=== PATIENT | male | born 1990 | race Caucasian/White ===

== ENCOUNTER 2019-03-09 16:03 | Emergency (ER) | payer BC ==
[2019-03-09 16:15] VITALS: BP 135/89; PULSE 97; TEMP 98.5
[2019-03-09 17:27] VITALS: RESP 16
--- NOTE | 2019-03-09 17:42 | XR ---
EXAMINATION TYPE: XR chest 2V DATE OF EXAM: 03/09/2019 COMPARISON: NONE HISTORY: Cough and congestion TECHNIQUE: 2 views FINDINGS: Heart and mediastinum are normal. Lungs are clear. Diaphragm is normal. Bony thorax appears normal. IMPRESSION: Normal chest.
--- NOTE | 2019-03-09 18:02 | ED ---
General Adult HPI - General Chief complaint: Shortness of Breath Stated complaint: Cough/congestion Time Seen by Provider: 03/09/19 17:17 Source: patient Mode of arrival: ambulatory Limitations: no limitations - History of Present Illness Initial comments: Patient is a 28-year-old male presenting to emergency Department with a cough 2-3 weeks. Patient states he was treated for bronchitis/pneumonia with azithromycin 2 weeks ago. Patient still complaining of a deep cough. Patient denies fever, chills, nausea. Patient did have a vomiting episode today after he was coughing. He has no other complaints at this time. He denies history of asthma or COPD. upon arrival to the ER, his vital signs are stable. - Related Data Previous Rx's Medication Instructions Recorded Albuterol Inhaler [Ventolin Hfa 1 - 2 puff INHALATION RT-Q6H PRN 03/09/19 Inhaler] #1 inhaler methylPREDNISolone [Medrol Dose 4 mg PO DIRECTED #1 pack 03/09/19 Pack] Allergies Allergy/AdvReac Type Severity Reaction Status Date / Time amoxicillin Allergy Rash/Hives Verified 03/09/19 16:15 Penicillins Allergy Rash/Hives Verified 03/09/19 16:15 Review of Systems ROS Statement: Those systems with pertinent positive or pertinent negative responses have been documented in the HPI. ROS Other: All systems not noted in ROS Statement are negative. Past Medical History Past Medical History: No Reported History History of Any Multi-Drug Resistant Organisms: None Reported Past Surgical History: No Surgical Hx Reported Past Psychological History: No Psychological Hx Reported Smoking Status: Never smoker Past Alcohol Use History: Occasional Past Drug Use History: None Reported General Exam - General Exam Comments Initial Comments: GENERAL: Well-appearing, well-nourished and in no acute distress. HEAD: Atraumatic, normocephalic. EYES: Pupils equal round and reactive to light, extraocular movements intact, sclera anicteric, conjunctiva are normal. ENT: TMs normal, nares patent, oropharynx clear without exudates. Moist mucous membranes. NECK: Normal range of motion, supple without lymphadenopathy or JVD. LUNGS: Breath sounds clear to auscultation bilaterally and equal. No wheezes rales or rhonchi. HEART: Regular rate and rhythm without murmurs, rubs or gallops. ABDOMEN: Soft, nontender, normoactive bowel sounds. No guarding, no rebound. No masses appreciated. EXTREMITIES: Normal range of motion, no pitting or edema. No clubbing or cyanosis. NEUROLOGICAL: Normal speech, normal gait. PSYCH: Normal mood, normal affect. SKIN: Warm, Dry, normal turgor, no rashes or lesions noted. Limitations: no limitations Course Vital Signs 03/09/19 03/09/19 16:11 17:25 Temperature 98.5 F Pulse Rate 97 Respiratory 18 16 Rate Blood Pressure 135/89 O2 Sat by Pulse 95 Oximetry Medical Decision Making - Medical Decision Making Patient is a 28-year-old male presenting with a cough 3 weeks. He was treated with azithromycin 2 weeks ago. Chest x-ray today shows no acute findings. I discussed this with the patient. Patient will be given round of steroids and inhaler to use for cough. He is in agreement with this plan of care. He is stable for discharge at this time. Patient will follow up with PCP if symptoms persist. Disposition Clinical Impression: Bronchitis Disposition: HOME SELF-CARE Condition: Stable Instructions (If sedation given, give patient instructions): Acute Bronchitis (ED) Additional Instructions: Please return to the Emergency Department if symptoms worsen or any other concerns. Take steroids as prescribed. Use inhaler as needed for cough. Follow-up with PCP if symptoms persist after 2 weeks. Prescriptions: methylPREDNISolone [Medrol Dose Pack] 4 mg PO DIRECTED #1 pack Albuterol Inhaler [Ventolin Hfa Inhaler] 1 - 2 puff INHALATION RT-Q6H PRN #1 inhaler PRN Reason: Cough Is patient prescribed a controlled substance at d/c from ED?: No Referrals: Milton Huddleston MD [Primary Care Provider] - 1-2 days
== END 2019-03-09 18:10 | disposition home or self-care (01) ==
LOC: EC 16:03
DX: J40 Bronchitis, not specified as acute or chronic (principal); Z88.0 Allergy status to penicillin
CPT/HCPCS: 71046; 99284